=== PATIENT | male | born 1970 | race Caucasian/White ===

== ENCOUNTER 2018-02-18 09:50 | Emergency (ER) | payer MEDICAID ==
[~2018-02-18] VITALS: Ht 175.3 cm; Wt 72.0 kg
[2018-02-18 10:27] VITALS: BP 158/95
[2018-02-18] MEDS ORDERED: AMOX-580 PO (12:59)
== END 2018-02-18 13:11 | disposition home or self-care (01) ==
LOC: ER 09:51
DX: J02.0 Streptococcal pharyngitis (principal); F12.90 Cannabis use, unspecified, uncomplicated; F17.200 Nicotine dependence, unspecified, uncomplicated; Z88.6 Allergy status to analgesic agent; Z79.899 Other long term (current) drug therapy
CPT/HCPCS: 87880; 99283; 99285

== ENCOUNTER 2020-05-13 20:29 | Emergency (ER) | payer MEDICAID ==
[~2020-05-13] VITALS: Ht 175.3 cm; Wt 75.0 kg
--- NOTE | 2020-05-13 20:32 | NUR ---
Spoke to Dr. Thompson regarding patient and his condition. He wants the patient in a c-collar with an IV placed for CT scans with contrast. Attempted to place c-collar and patient refuses despite education of its purpose. 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 Patient is alert and oriented x4. Dr. Thompson notified.
[2020-05-13] MEDS ORDERED: iohexol 300mg/ml 100ml inj. ONE (20:45)
--- NOTE | 2020-05-13 21:08 | NUR ---
Patient taken to CT. He refused an IV for use with contrast for the CT ordered by Dr. Thompson. Patient agreed to CT without contrast.
--- NOTE | 2020-05-13 21:20 | NUR ---
Patient is back from CT. Still A&Ox4 and resting comfortably.
[2020-05-13 22:17] VITALS: BP 134/82
== END 2020-05-13 22:18 ==
LOC: ER 20:30
DX: Z02.89 Encounter for other administrative examinations (principal); V89.2XXA Person injured in unspecified motor-vehicle accident, traffic, initial encounter; Y93.89 Activity, other specified; Y92.89 Other specified places as the place of occurrence of the external cause; Y99.8 Other external cause status
CPT/HCPCS: 70450; 71250; 72125; 74176; 99285; Q9967

== ENCOUNTER 2024-01-19 15:02 | Emergency (ER) | payer MEDICAID ==
[~2024-01-19] VITALS: Ht 175.3 cm; Wt 71.2 kg
[~2024-01-19 15:02] MED LIST: ACET650T58 PO; LIDO700A47 TOP; TIZA4CAP PO
[2024-01-19 15:53] VITALS: BP 184/110; PULSE 127; O2SAT 100
[2024-01-19] MEDS ORDERED: CYCL-1 PO (17:25)
[2024-01-19] MEDS ORDERED: LIDO700A32 TOP (17:25)
[2024-01-19] MEDS ORDERED: PRED20TA PO (17:25)
[2024-01-19] MEDS: oxyCODONE/APAP 10/325mg tablet PO ONE (18:07)
[2024-01-19] MEDS: ondansetron 4mg rapidly disintigrating tab PO ONE (18:08)
[2024-01-19] MEDS: dexamethasone sod phosphate 10mg/ml inj IM STA (18:08)
[2024-01-19] MEDS: ketorolac trometh. 30mg/ml inj. IM ONE (18:08)
[2024-01-19] MEDS: cyclobenzaprine 10mg tablet PO ONE (18:08)
[2024-01-19 18:13] VITALS: RESP 16; TEMP 98.9
[2024-01-19] MEDS: ketorolac trometh. 30mg/ml inj. IV ONE (18:13)
== END 2024-01-19 18:15 | disposition home or self-care (01) ==
LOC: ER 15:03
DX: S39.012A Strain of muscle, fascia and tendon of lower back, initial encounter (principal); M54.32 Sciatica, left side; F12.90 Cannabis use, unspecified, uncomplicated; Z88.6 Allergy status to analgesic agent; Z79.899 Other long term (current) drug therapy; Z79.1 Long term (current) use of non-steroidal anti-inflammatories (NSAID); X58.XXXA Exposure to other specified factors, initial encounter; Y93.89 Activity, other specified; Y92.89 Other specified places as the place of occurrence of the external cause; Y99.8 Other external cause status
CPT/HCPCS: 72100; 96372; 99284; J1100; J1885